=== PATIENT | female | born 1985 | race Caucasian/White ===

== ENCOUNTER 2018-07-19 13:12 | Inpatient (IN) | payer BC ==
[~2018-07-19] VITALS: Ht 15.2 cm; Wt 140.0 kg
[2018-08-15] VITALS (58 sets, daily range): BP systolic 106–152; BP diastolic 50–94; PULSE 80–121; TEMP 97.8–98.2
--- NOTE | 2018-08-15 07:09 | NUR ---
Pt arrives on unit ambulatory with spouse for induction of labor. G2L0 at 41 weeks gestation. Changed into a clean gown. EFM and toco applied. VSS. Pt denies regular ctx, LOF, vaginal bleeding and reports good movement. Admission assessment completed. Consents signed. IV started in RH. Labs drawn. LR infusing. See emar. Pt updated on POC. Oriented to room. No questions or concerns at this time. Bed locked in low position.
[2018-08-15] MEDS ORDERED: PRENATAL MVI (07:12)
[2018-08-15] MEDS ORDERED: PROFERRIN ES12 MG PO (07:13)
[2018-08-15 08:10] LABS: BASO % 0.3 % (0.0-2.0); EOS # 0.1 (0.0-0.7); EOS % 0.6 % (0-4.0); GRAN # 6.5 (1.4-6.5); GRAN % 65.9 % (42.2-75.2); HEMOGLOBIN 12.2 g/dl (12.5-16.0); LYMPH # 2.7 (1.2-3.4); LYMPH % 27.1 % (20.0-51.0); MEAN CELL VOLUME 88 fl (80.0-100.0); MEAN CORPUSCULAR HEMOGLOBIN 31 pg (27.0-31.0); MEAN CORPUSCULAR HGB CONC 35 g/dl (33.0-37.0); MEAN PLATELET VOLUME 11.6 fl (7.4-10.4); MONO # 0.5 (0.1-0.6); MONO % 5.4 % (1.7-9.3); PLATELET COUNT 210 K/mm3 (130-400); REDCELL DISTRIBUTION WIDTH-CV 13.7 % (11.5-14.5)
[2018-08-15 08:15] LABS: HEMATOCRIT 35.2 % (37.0-47.0)
--- NOTE | 2018-08-15 11:52 | NUR ---
Pt up to bathroom. 1201-Pt back to monitors. Difficulty tracing FHR due to maternal habitus and position. RN at bedside adjusting monitors. FHR audible.
--- NOTE | 2018-08-15 13:01 | NUR ---
Pt up to bathroom 1310-Pt back to monitors. Difficulty tracing FHR due to maternal position and habitus. Pt repositioned HF to LL. FHR audible. FHR tracing with WL position.
--- NOTE | 2018-08-15 19:30 | NUR ---
1929 - 2019 Pt repositioned self to sitting on edge of bed for comfort. Difficulty tracing FHTs in this position. RN at bedside and FHR audible in 140s, not tracing on paper though. No audible decels. RN continues to adjust monitors.
--- NOTE | 2018-08-15 20:30 | NUR ---
Pt up to bathroom to void. SVE unchanged /-2, FSE placed at this time due to difficulty tracing FHTs.
--- NOTE | 2018-08-15 21:00 | NUR ---
CIARRAE replaced by ANGELLA Rousseau
--- NOTE | 2018-08-15 21:40 | NUR ---
RN at bedside. Pt tearful and states she is just frustrated. Discussed plan of care with patient and . Pt educated on epidural pros and cons. Pt requesting epidural at this time. [place]an [place] CRNA notified.
--- NOTE | 2018-08-15 21:50 | NUR ---
215 - LUPILLO Kwon at bedside. Epidural procedure, risks, and benefits explained to patient. Pt verbalized understanding. 2154 - Pt repositioned to sitting on edge of bed. Time out performed. RN attempting to hand hold EFM, difficulty due to maternal position. 2205 - Test dose by LUPILLO Kwon, pt denies any adverse reactions. 2209 - Pt repositioned to wedge left. FSE tracing at this time. See Anesthesia record
--- NOTE | 2018-08-15 22:45 | NUR ---
Gomes placed to dependent drainage. Instant return of clear, yellow urine. Tubing secure to leg using statlock. SVE /-2 with bloody show. Pt tolerated procedure well.
[2018-08-16] VITALS (39 sets, daily range): BP systolic 69–140; BP diastolic 42–95; PULSE 81–120; TEMP 97.9–99.2
--- NOTE | 2018-08-16 03:40 | NUR ---
SVE /0. Pt educated on pushing techniques, pt verbalized understanding. Pt positioned into footplates, supportive at bedside. Initial push at 0351.
--- NOTE | 2018-08-16 06:45 | NUR ---
0632- Roles at bedside at this time. [facility] dc'd. Provider performs SVE and pushes with patient. Provider states to increase pitocin to 32 mU. 0640- Cord blood collection dropped on table. 0645-Nursery nurse called at this time.
--- NOTE | 2018-08-16 06:51 | NUR ---
0651- Spontaneous delivery of viable female infant at this time. 0707- Manual removal of placenta at this time by Dr. Villalta. Heavey bleeding at this time. Pitocin infusion running rapidly while Dr. Villalta performs fundal massage. 0709- Cytotec 800 given rectally. 1ml Misoprostil given IM on left outer thigh at this time. 0710- Second degree laceration repaired at this time. EBL is 800cc. H&H ordered by Dr. Villalta for this AM.
[2018-08-16 10:09] LABS: HEMATOCRIT 28.6 % (37.0-47.0); HEMOGLOBIN 9.7 g/dl (12.5-16.0)
--- NOTE | 2018-08-16 10:15 | NUR ---
1015- Patient assisted out of bed to make an attempt to reach bathroom to void. Patient began to dizzy and light headed. Patient placed straight into wheelchair. Patient states feeling better shortly after. 1030- Patient take to room in 218. taken to nursery for sugar check and bath. Epidural catheter taken out without any complications at this time.
[2018-08-17] VITALS (16 sets, daily range): BP systolic 11–125; BP diastolic 50–70; PULSE 89–108; TEMP 97.6–98.7
[2018-08-17 07:17] LABS: HEMATOCRIT 23.1 % (37.0-47.0); HEMOGLOBIN 7.9 g/dl (12.5-16.0)
--- NOTE | 2018-08-17 10:37 | NUR ---
Initial visit attempt; Patient out of room, Video Camera Operator left card of congratulations for the of her daughter and information regarding the availability of [facility].
--- NOTE | 2018-08-17 18:30 | NUR ---
Lab to bedside to draw H&H at this time.
[2018-08-17 18:48] LABS: HEMATOCRIT 27.3 % (37.0-47.0); HEMOGLOBIN 9.2 g/dl (12.5-16.0)
[2018-08-18] MEDS ORDERED: PERCOCET 325 MG1 TA2 PO (09:24)
[2018-08-18] MEDS ORDERED: IBU600 MG PO (09:24)
[2018-08-18 09:31] VITALS: BP 107/59; PULSE 96; TEMP 97.8
== END 2018-08-18 13:15 | disposition home or self-care (01) | DRG 806 ==
LOC: LDRO → EDSTATUS 08-07 06:02 → LDRO 08-07 13:12 → LDR 08-15 06:04 → OB 08-16 11:00
PROVIDERS: ADMIT Obstetrics & Gynecology
PROC: 3E033VJ Introduction of Other Hormone into Peripheral Vein, Percutaneous Approach (ICD-10-PCS; 2018-08-15)
PROC: 10907ZC Drainage of Amniotic Fluid, Therapeutic from Products of Conception, Via Natural or Artificial Opening (ICD-10-PCS; 2018-08-15)
PROC: 10E0XZZ Delivery of Products of Conception, External Approach (ICD-10-PCS; principal; 2018-08-16)
PROC: 0KQM0ZZ Repair Perineum Muscle, Open Approach (ICD-10-PCS; 2018-08-16)
DX: O48.0 Post-term pregnancy (principal); O72.1 Other immediate postpartum hemorrhage; Z37.0 Single live birth; D62 Acute posthemorrhagic anemia; Z3A.41 41 weeks gestation of pregnancy; O99.824 Streptococcus B carrier state complicating childbirth; O69.81X0 Labor and delivery complicated by cord around neck, without compression, not applicable or unspecified; O70.1 Second degree perineal laceration during delivery; O99.344 Other mental disorders complicating childbirth; F41.8 Other specified anxiety disorders; O99.214 Obesity complicating childbirth; O90.81 Anemia of the puerperium
CPT/HCPCS: J2210; J2540; J2590; J7120; P9016

== ENCOUNTER → 2021-07-30 | Outpatient (CLI) | payer BC ==
[~2021-07-30] MED LIST: IBU600 MG PO; PERCOCET 325 MG1 TA2 PO; PRENATAL MVI; PROFERRIN ES12 MG PO
== END ==
LOC: DIA.ED 09:50
DX: O24.419 Gestational diabetes mellitus in pregnancy, unspecified control (principal)
CPT/HCPCS: G0108

== ENCOUNTER 2021-09-26 13:11 | Inpatient (IN) | payer BC ==
[~2021-09-26] VITALS: Ht 167.6 cm; Wt 135.0 kg
[2021-09-28] VITALS (43 sets, daily range): BP systolic 98–151; BP diastolic 55–91; PULSE 62–99; TEMP 97.4–98.2
--- NOTE | 2021-09-28 06:30 | NUR ---
0630-39.5 Week G3L1 Patient of Dr. Villalta ambulatory to LR 5 for scheduled induction of labor. Patient reports good movement, no leaking of fluid or bleeding and no contractions. Assisted into gown andn placed on EFM. VSS, Reactive FHR. Assessment complete. Patient consents reviewed and signed. 0715-IV to Right hand by ANGELLA James after two attempts in both righ and left hand by this RN. Blood collected for patients own cord blood banking kit and MD orders.LR infusing per MD orders. Blood glucose collected 92 at this time. Reviewed plan of care and updated on safety. 0725-SVE /-3 0815-Pit started at 2mu/min per protocol
[2021-09-28 07:23] LABS: BASO % 0.2 % (0.0-2.0); EOS # 0.1 K/mm3 (0.0-0.7); EOS % 0.6 % (0.0-4.0); GRAN # 5.3 K/mm3 (1.4-6.5); GRAN % 62.3 % (42.2-75.2); LYMPH # 2.7 K/mm3 (1.2-3.4); LYMPH % 31.6 % (20.0-51.0); MEAN CELL VOLUME 87 fl (80.0-100.0); MEAN CORPUSCULAR HEMOGLOBIN 29 pg (27-31); MEAN CORPUSCULAR HGB CONC 34 g/dl (33.0-37.0); MEAN PLATELET VOLUME 10.6 fl (7.4-10.4); MONO # 0.4 K/mm3 (0.1-0.6); MONO % 4.7 % (1.7-9.3); PLATELET COUNT 228 K/mm3 (130-400); RED BLOOD COUNT 4.12 M/mm3 (4.10-5.30); REDCELL DISTRIBUTION WIDTH-CV 13.8 % (11.5-14.5)
[2021-09-28 07:28] LABS: HEMATOCRIT 35.7 % (37.0-47.0)
[2021-09-28] MEDS ORDERED: TUMS500 MG (08:08)
--- NOTE | 2021-09-28 10:40 | NUR ---
1040-Dr. Villalta on unit. Reviews FHR monitor and in to see patient. SVE /-2, AROM, clear fluid. FHR difficult to trace follwoing AROM. FSE placed by Dr. Villalta. 1050-FSE with artifact, RN replaces elctrode sticker. Artifact persists. Dr. Villalta on unit and reviews FHR monitor, okay with tracing.
--- NOTE | 2021-09-28 12:05 | NUR ---
1205-Patient repositions RL. RN to room due to increased artifact tracing with FSE. Repositioned to RL with peantu ball and adjusted electrode for FSE. Difficulty tracing contractions TOCO readjusted frequently. 1230-Patient sitting upright on bedside. TOCO adjusted due to difficulty tracing contractions with position changes and habitus. Contractions palpate firm every 2-3 min while RN at bedside.
--- NOTE | 2021-09-28 16:36 | NUR ---
1636-SVE , notified Dr. Villalta, order to start pushing and call with update on efforts. 1727-Called Dr. Villalta. MD was walking onto unit at time of call. 1730-Dr. Villalta to patient room. Set up for delivery. 1731-Patient begins pushing with DrJose Moves vertex well. 1733-Spontaneous delivery of head, tight nuchal cord x1 clamped and cut by MD. Patient proceeds with pushing and body easily follows. Viable female infant placed on mothers abodmen. Care of assumed by ANGELLA Ocasio. Apgars 8/9. Cord blood collected by MD for patient who is banking cord blood. 1737-Spontaneous delivery of intact placenta by . Fundal massage firm. Lochia WNL. EBL 200ml. 2nd degree perineal laceration repaired by MD. Nataly care provided. Updated on plan of care and safety.
--- NOTE | 2021-09-28 20:45 | NUR ---
Pt able to lift and hold each leg off of bed for 5 seconds. Pt positioned to sitting on edge of bed. Epidural catheter removed. Tip smooth, blue, and intact. Pt able to ambulate to bathroom independently. Unable to void at this time. Educated on importance of frequently emptying bladder, verbalized understanding and will attempt again in 1 hour. Pericare explained and provided. Clean gown on. Mesh panties and peripad applied. Pt able to ambulate to room 214 with belongings and infant.
[2021-09-29] VITALS: BP 111/58; PULSE 90; TEMP 97.9
[2021-09-29 04:45] VITALS: BP 106/51; PULSE 81; TEMP 97.9
[2021-09-29 07:30] VITALS: BP 116/52; PULSE 80; TEMP 98.1
--- NOTE | 2021-09-29 09:31 | NUR ---
Initial visit; Mom indisposed, Dietitian Research spoke with Dad, Grandmother and sister. Dietitian Research offered congratulations to all and offered God's blessings.
[2021-09-29] MEDS ORDERED: IBU800 M1 PO (10:57)
[2021-09-29 17:00] VITALS: BP 128/81; PULSE 75; TEMP 98
== END 2021-09-29 18:47 | disposition home or self-care (01) | DRG 807 ==
LOC: LDR 13:11 → OB 09-28 06:13 → LDR 09-28 11:38 → OB 09-28 21:15
PROVIDERS: ADMIT Obstetrics & Gynecology
PROC: 10E0XZZ Delivery of Products of Conception, External Approach (ICD-10-PCS; principal; 2021-09-28)
PROC: 0KQM0ZZ Repair Perineum Muscle, Open Approach (ICD-10-PCS; 2021-09-28)
PROC: 10907ZC Drainage of Amniotic Fluid, Therapeutic from Products of Conception, Via Natural or Artificial Opening (ICD-10-PCS; 2021-09-28)
PROC: 3E033VJ Introduction of Other Hormone into Peripheral Vein, Percutaneous Approach (ICD-10-PCS; 2021-09-28)
DX: O36.63X0 Maternal care for excessive fetal growth, third trimester, not applicable or unspecified (principal); Z37.0 Single live birth; O99.214 Obesity complicating childbirth; O70.1 Second degree perineal laceration during delivery; O24.420 Gestational diabetes mellitus in childbirth, diet controlled; O69.1XX0 Labor and delivery complicated by cord around neck, with compression, not applicable or unspecified; Z3A.39 39 weeks gestation of pregnancy
CPT/HCPCS: J2590; J2795; J7120

== ENCOUNTER → 2023-07-30 | Outpatient (CLI) | payer BC ==
[~2023-07-30] MED LIST changes: +IBU800 M1 PO; +TUMS500 MG
== END ==
LOC: MC.RAD 08:00
DX: Z12.31 Encounter for screening mammogram for malignant neoplasm of breast (principal)